=== PATIENT | male | born 2000 | race Caucasian/White ===

== ENCOUNTER 2020-03-24 00:23 | Emergency (ER) | payer SELFPAY ==
[~2020-03-24] VITALS: Ht 177.8 cm; Wt 108.9 kg
== END 2020-03-24 02:30 | disposition home or self-care (01) ==
LOC: ER 00:23
DX: F11.10 Opioid abuse, uncomplicated (principal)
CPT/HCPCS: 99285

== ENCOUNTER 2022-05-25 02:20 | Emergency (ER) | payer OTHER ==
[~2022-05-25] VITALS: Ht 180.3 cm; Wt 88.5 kg
[2022-05-25] MEDS ORDERED: SULTRIDS PO (07:32)
== END 2022-05-25 07:51 | disposition home or self-care (01) ==
LOC: ER 02:20
DX: S62.625B Displaced fracture of middle phalanx of left ring finger, initial encounter for open fracture (principal); S61.213A Laceration without foreign body of left middle finger without damage to nail, initial encounter; W27.0XXA Contact with workbench tool, initial encounter; F17.210 Nicotine dependence, cigarettes, uncomplicated
CPT/HCPCS: 12002; 73130; 96374-59; 96375-59; 99283-25; J0690; J1885

== ENCOUNTER 2022-06-09 13:44 | Emergency (ER) | payer OTHER ==
[~2022-06-09] VITALS: Ht 180.3 cm; Wt 86.2 kg
[~2022-06-09 13:44] MED LIST: SULTRIDS PO
[2022-06-09] MEDS ORDERED: Bactrim Ds Tab1 EACH PO (16:02)
== END 2022-06-09 16:20 | disposition home or self-care (01) ==
LOC: ER 13:44
DX: L03.012 Cellulitis of left finger (principal); F17.210 Nicotine dependence, cigarettes, uncomplicated; S61.213D Laceration without foreign body of left middle finger without damage to nail, subsequent encounter; S61.215D Laceration without foreign body of left ring finger without damage to nail, subsequent encounter; Z59.00 Homelessness unspecified; W45.8XXD Other foreign body or object entering through skin, subsequent encounter
CPT/HCPCS: 99283